=== PATIENT | male | born 1980 | race Caucasian/White ===

== ENCOUNTER 2019-04-16 14:35 | Emergency (ER) | payer BC ==
[2019-04-16 14:45] VITALS: BP 145/93
[2019-04-16] MEDS ORDERED: DIPH,PERTUSS(ACELL),TET VAC/PF 0.5 ML DISP.SYRIN IM ONE ×2 (14:49→15:20)
[2019-04-16] MEDS ORDERED: Lidocaine 1% 5ml 10 MG/ML VIAL IM ONE (14:53)
--- NOTE | 2019-04-16 15:02 | ED Physician Documentation ---
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 Patient is not current on tetanus vaccine. Onset: just prior to arrival Where: work Severity: moderate Duration: persistent since Context: crush Associated Symptoms: tingling Modifying Factors: pain on movement Further Comments: no - ROS CONST: no problems CVS/RESP: none NEURO: none MS/SKIN/LYMPH: none GI/: denies: nausea, vomiting - PAST HX Past History: Rt handed Allergies/Adverse Reactions: Allergies Allergy/AdvReac Type Severity Reaction Status Date / Time No Known Allergies Allergy Verified 04/16/19 14:45 Home Medications: Ambulatory Orders Medication Instructions Recorded NK 04/16/19 - SOCIAL HX Smoking History: non-smoker Alcohol Use: none Drug Use: none - FAMILY HX Family History: none - VITAL SIGNS Vital Signs: Vital Signs Temp Pulse Resp BP Pulse Ox 103 H 17 145/93 94 04/16/19 14:40 04/16/19 14:40 04/16/19 14:40 04/16/19 14:40 - REVIEWED ASSESSMENTS Nursing Assessment Reviewed: Yes Vitals Reviewed: Yes Procedures Wound Location: upper extremity Wound Length: 2 cm Wound's Depth, Shape: into muscle, irregular Wound Explored: clean Irrigated w/ Saline (ccs): 200 Betadine Prep?: No Anesthesia: 1% Lidocaine Wound Debrided: moderate Wound Repaired With: sutures Suture Size/Type: 4:0 Number of Sutures: 4 Sterile Dressing Applied?: Yes Splint Applied?: No Sling Applied?: No ED Results Lab/Radiology - Radiology Radiology Impressions: Report Submission Date: Apr 16, 2019 3:21:29 PM CDT Patient Study Name: AFSANEH COLEMAN Date: Apr 16, 2019 2:43:35 PM CDT Modality Type: DX Gender: M Description: FOREARM 2 VIEWS : 76 Institution: [facility] Physician: EDILIA PATEL Exam: Left forearm. History: Injury. AP and lateral view of the left forearm are submitted. No signs of acute fracture or dislocation is seen. No bony erosions are seen. Mild soft tissue swelling in the mid forearm is noted. Impression: No acute fracture. Electronically signed on Apr 16, 2019 3:21:29 PM CDT by: Hayden Uribe - Orders Orders: ED Orders Category Date Time Status FOREARM 2 VIEWS [RAD] Stat Exams 04/16/19 Taken Diph,Pertuss(Acell),Tet Vac/Pf [Adacel] Med 04/16/19 14:49 Discontinued 0.5 ml IM .ONCE ONE Diph,Pertuss(Acell),Tet Vac/Pf [Adacel] Med 04/16/19 15:20 Discontinued 0.5 ml IM .STK-MED ONE Lidocaine 1% 5ml [Xylocaine] Med 04/16/19 14:53 Discontinued 50 mg IM NOW ONE Upper Extremity Injury Physic - Physical Exam General Appearance: no acute distress, alert Hand: normal inspection, non-tender Wrist: pain, soft tissue tenderness Elbow/Forearm: abrasions (2 cm laceration to posterior left forearm), soft tissue tenderness, swelling Shoulder: normal inspection, non-tender, no evidence of injury Neuro/Vascular/Tendon: no vascular compromise, motor nml, sensation nml Skin: warm,dry Head/ENT: nml inspection Resp/CVS: chest non-tender, breath sounds nml, heart sounds nml Abdomen: non-tender Discharge Clincal Impression: Laceration Referrals: Primary Doctor,No [Primary Care Provider] - 2 Days Additional Instructions: 1. Ibuprofen 600mg every 6 hours as needed for pain. You may add Tylenol 650mg every 4 hours as needed for pain 2. Apply ice to affected area as needed for comfort 3. Keep arm elevated as much as possible to prevent swelling 4. Keep sutures clean and dry. 5. Follow up with PCP in 7-10 days for suture removal. 6. Return to ER for new or worsening symptoms Condition: Stable Disposition: 01 HOME, SELF-CARE Decision to Admit: NO Date of Decison to Admit: 04/16/19 Decision Time: 15:57
--- NOTE | 2019-04-16 15:38 | Diagnostic Imaging Report ---
EDILIA PATEL [facility] [id number] [facility].[address] [id number] Report Submission Date: Apr 16, 2019 3:21:29 PM CDT Patient Study Name: AFSANEH COLEMAN Date: Apr 16, 2019 2:43:35 PM CDT Modality Type: DX Gender: M Description: FOREARM 2 VIEWS : 76 Institution: [facility] Physician: EDILIA PATEL Exam: Left forearm. History: Injury. AP and lateral view of the left forearm are submitted. No signs of acute fracture or dislocation is seen. No bony erosions are seen. Mild soft tissue swelling in the mid forearm is noted. Impression: No acute fracture. Electronically signed on Apr 16, 2019 3:21:29 PM CDT by: Hayden ROSE
== END 2019-04-16 16:00 | disposition home or self-care (01) ==
LOC: ED 14:35
DX: S41.112A Laceration without foreign body of left upper arm, initial encounter (principal); W23.0XXA Caught, crushed, jammed, or pinched between moving objects, initial encounter
CPT/HCPCS: 73090; 90715; 96372; 99284; J7030